=== PATIENT | male | born 1970 | race Caucasian/White ===

== ENCOUNTER 2023-10-01 21:32 | Emergency (ER) | payer BC, SELFPAY ==
[2023-10-01] VITALS (8 sets, daily range): BP systolic 95–116; BP diastolic 61–73; PULSE 63–81; BMI 35.1
[2023-10-01 21:41] LABS: Glucose - Point of Care 127 mg/dl (70-99)
[2023-10-01 22:31] LABS: % Basophils 0.9 % (0-2); % Eosinophils 3.1 % (0-6); % Immature Granulocytes 0.5 % (0-0.5); % Monocytes 7.5 % (1.7-9.3); Absolute Basophils 0.1 10^3/uL (0-0.2); Absolute Eosinophils 0.2 10^3/uL (0-0.7); Absolute Lymphocytes 1.1 10^3/uL (1.2-3.4); Absolute Monocytes 0.4 10^3/uL (0.1-0.6); Hematocrit 38.1 % (39.0-52.0); Hemoglobin 13.5 g/dL (13.0-18.0); Mean Corp Hgb Conc. 35.4 g/dL (33.0-37.0); Mean Corpuscular Hgb 30.1 pg (27.0-31.0); Mean Corpuscular Volume 84.9 fL (80.0-94.0); Mean Platelet Volume 9.8 fL (7.4-10.4); Nucleated Red Blood Cells % 0 % (-); Platelet Count 252 10^3/uL (130-400); Red Blood Cell Count 4.49 10^6/uL (4.70-6.10); Red Cell Dist. Width 12.9 % (11.5-14.5); White Blood Cell Count 5.9 10^3/uL (4.8-10.8)
[2023-10-01 22:54] LABS: ALT (SGPT) 26 U/L (0-50); AST (SGOT) 26 U/L (17-59); Albumin 3.9 g/dl (3.5-5.0); Alkaline Phosphatase 52 U/L (38-126); Blood Urea Nitrogen 15 mg/dl (9-20); Carbon Dioxide 19 mmol/L (22-30); Chloride 107 mmol/L (98-107); Estimated Creatinine Clearance 100 ml/min; Glucose 120 mg/dl (70-99); Potassium 3.7 mmol/L (3.5-5.1); Sodium 135 mmol/L (135-145); Total Bilirubin 0.8 mg/dl (0.2-1.3); Total Protein 6.1 g/dl (6.3-8.2); eGFR > 60.00
[2023-10-01 22:55] LABS: Troponin I < 0.012 ng/ml
--- NOTE | 2023-10-01 22:55 | ED.GENMED ---
History of Present Illness
General
Chief Complaint: Fainting Sensation
Source: patient and spouse
Exam Limitations: none
Time Seen by Provider: 10/01/23 22:54
Travel History
Have you had any contact with someone who has COVID-19?: No
Do you have any symptoms of coronavirus? Fever > 100 degrees, chills, cough, shortness of breath, sore throat, loss of taste or smell, muscle aches, or headache?: No
History of Present Illness
History of Present Illness:
Healthy 53-year-old male became lightheaded cold sweat blurry vision bilateral ear ringing while at dinner. No syncopal episode. No palpitations chest pain shortness of breath. No unusual headache. No neurologic symptoms. Feels better now just
slightly weak. Did get blood earlier today. Had a few drinks at dinner and 1 prior to dinner.
Past History
Past History
ED Past Medical History: None
ED Past Surgical History: Negative Cardiac
Social History
Tobacco: Non-smoker
Alcohol: Occasional
Drug: None
Personal:
Living: with family
Employment: Employed
Family History
Family History: Negative Early CAD, CAD or Sudden
Review of Systems
Review of Systems
All Other Systems: Not applicable
Respiratory: Denies trouble breathing
Cardiac: Denies chest pain or palpitations
Phy Exam
Physical Exam
Physical Exam:
GENERAL: Alert and oriented in no apparent distress
EYE: Orbits normal.
NECK: Supple, no carotid bruit
ENT: Pharynx without erythema
CARDIAC: Regular rate and rhythm without any obvious murmurs.
LUNGS: Clear breath sounds,normal
ABDOMEN: Soft, without focal tenderness or distention
NEUROLOGICAL: Alert and oriented , grossly non-focal
SKIN: Warm and dry, no rash or lesion, no discoloration, skin intact.
MUSCULOSKELETAL: No edema,no deformity.Good color
PSYCH: Normal and appropriate interaction.
Course
Orders/Labs/Results
Orders:
Orders
10/01/23 21:36
EKG [Electrocardiogram (*1)] Urgent
Reason for Study: Vertigo / Dizzy
EKG- Treatment ONCE
10/01/23 22:24
D-Dimer Urgent
10/01/23 22:26
Complete Blood Count/With Diff Urgent
Comprehensive Metabolic Panel Urgent
Troponin I Urgent
10/01/23 23:08
0.9% Sodium Chloride 1000 ml [Nss] 1,000 ml IV BOLUS
10/02/23 00:11
Electrocardiogram (*1) Urgent
Reason for Study: Vertigo / Dizzy
10/02/23 00:12
EKG- Treatment ONCE
10/02/23 00:14
Troponin I Urgent
Abnormal Lab Results
10/01/23 10/01/23
21:39 22:26
RBC 4.49 L 10^6/uL
(4.70-6.10)
Hct 38.1 L %
(39.0-52.0)
Absolute Lymphs (auto) 1.1 L 10^3/uL
(1.2-3.4)
Lymphocytes % 19.0 L %
(20.5-51.1)
Carbon Dioxide 19 L mmol/L
(22-30)
Glucose 120 H mg/dl
(70-99)
Total Protein 6.1 L g/dl
(6.3-8.2)
POC Glucose 127 H mg/dl
(70-99)
10/01/23 22:26
10/01/23 22:26
Vital Signs
Initial and Last Documented VS:
Initial Vital Signs
Temp Pulse Resp BP Pulse Ox
98.0 F 62 18 107/69 100
10/01/23 21:35 10/01/23 21:35 10/01/23 21:35 10/01/23 21:35 10/01/23 21:35
Last Documented Vital Signs
Temp Pulse Resp BP Pulse Ox
98.0 F 67 16 114/67 96
10/01/23 21:35 10/02/23 00:45 10/02/23 00:45 10/02/23 00:00 10/02/23 00:45
MDM/Problems Addressed
Differential Diagnosis Includes:
Patient with a near syncopal episode. Prodromal symptoms. No drop attacks syncope. No chest pain shortness of breath or other complaints. Did give blood earlier today. Workup in progress.
*Pulse Oximetry
Patient hypoxic: no
*EKG
Interpreted by ED Provider?: Yes
Interpretation: abnormal
Comparison EKG: changes noted
Heart Rate: 53
Rate: bradycardiac
Rhythm: sinus
[place]: normal axis
Interval: normal interval
QRS Pattern: normal QRS
Ischemia: no ischemia
*Critical Care Note
Total Time (30-74mins, 75-104mins- exclusive of procedures): Not Applicable
Update Note
Update Note:
EKG normal sinus rhythm at 61. PACs. No acute changes. Repeat troponin negative. D-dimer negative. No drop attacks syncope. Patient did give blood earlier in the day which may have been a secondary component to this. Stable for discharge to
follow-up
ED Attending Note
-
Portions of this chart may have been created with voice recognition software.� Occasional wrong word or��sound alike� substitutions may have occurred due to the inherent limitations of voice recognition software.
Discharge Plan
Departure
Patient Disposition: Home (Routine Discharge)
Date of Disposition: 10/02/23
Time of Disposition: 01:11
Patient with high blood pressure during this ER visit?: No
Discharge Problem:
Near syncope
Instructions: Near Fainting (DC)
Prescriptions:
No Action
calcium carbonate [Antacid (calcium carbonate)] 1 TABLET tablet,chewable
500 mg PO Q4HPRN PRN (Reason: indigestion)
omeprazole magnesium [Prilosec OTC] 20 MG tablet,delayed release (DR/EC)
20 mg PO DAILY Qty: 20 0RF
Referrals:
Beau Finn, DO [Family Provider] - Follow up in 2-3 days
Interventions
Interventions:
*General Assessment Last Done: 10/01/23 22:29
*Neglect/Abuse Screening Last Done: 10/01/23 22:29
ED- Cardiac Assessment Last Done: 10/01/23 22:30
ED- Neurological Assessment Last Done: 10/01/23 22:30
[2023-10-01] MEDS: NSS 1000 IV (23:18)
[2023-10-01 23:49] LABS: D-Dimer 0.37 ug/mlFEU (0.00-0.50)
[2023-10-02] VITALS: BP 114/67
[2023-10-02 00:47] LABS: Troponin I < 0.012 ng/ml
[2023-10-02 01:00] VITALS: BP 109/67
== END 2023-10-02 01:24 | disposition home or self-care (01) ==
LOC: EMR 21:32
PROVIDERS: Emergency Medicine; EMERGENCY PHYSICIAN Emergency Medicine; FAMILY PHYSICIAN Family Medicine
DX: R55 Syncope and collapse (principal); R53.1 Weakness; R42 Dizziness and giddiness; H93.13 Tinnitus, bilateral; H53.8 Other visual disturbances
CPT/HCPCS: 99284; 96360; 80053; 82962; 84484; 85025; 85379; 93005

== ENCOUNTER → 2024-07-27 06:23 | Day surgery (SDC) | payer BC, SELFPAY | LOC: GI 06:23 | PROVIDERS: ATTENDING PHYSICIAN Internal Medicine; FAMILY PHYSICIAN Family Medicine | DX: Z12.11 Encounter for screening for malignant neoplasm of colon (principal); D12.3 Benign neoplasm of transverse colon; D12.4 Benign neoplasm of descending colon; K63.5 Polyp of colon; D12.8 Benign neoplasm of rectum; Z86.0100 Personal history of colon polyps, unspecified | CPT/HCPCS: 45385; 45380; 88305 ==

== ENCOUNTER → 2024-08-29 15:05 | Outpatient (REF) | payer BC, SELFPAY | LOC: MRI 3T 15:05 | PROVIDERS: ATTENDING PHYSICIAN Specialist; FAMILY PHYSICIAN Family Medicine | DX: R97.20 Elevated prostate specific antigen [PSA] (principal) | CPT/HCPCS: 72197; A9575 ==

== ENCOUNTER → 2025-02-22 13:40 | Outpatient (REF) | payer BC, SELFPAY | LOC: RAD 13:40 | PROVIDERS: ATTENDING PHYSICIAN Family Medicine | DX: R10.32 Left lower quadrant pain (principal); N50.812 Left testicular pain | CPT/HCPCS: 76870; 76882; 93976 ==

== ENCOUNTER 2025-04-05 09:44 | Emergency (ER) | payer BC, SELFPAY ==
[2025-04-05 09:48] VITALS: BP 156/92
[2025-04-05 10:10] LABS: Hematocrit 46.3 % (39.0-52.0); Hemoglobin 15.7 g/dL (13.0-18.0); Mean Corp Hgb Conc. 33.9 g/dL (33.0-37.0); Mean Corpuscular Volume 86.4 fL (80.0-94.0); Nucleated Red Blood Cells % 0 % (-); Platelet Count 220 10^3/uL (130-400); Red Cell Dist. Width 13.9 % (11.5-14.5)
[2025-04-05 10:29] LABS: ALT (SGPT) 21 U/L (0-50); AST (SGOT) 22 U/L (17-59); Albumin 4.6 g/dl (3.5-5.0); Alkaline Phosphatase 49 U/L (38-126); Blood Urea Nitrogen 12 mg/dl (9-20); Calcium 8.9 mg/dl (8.4-10.2); Carbon Dioxide 25 mmol/L (22-30); Chloride 105 mmol/L (98-107); Glucose 111 mg/dl (70-99); Lipase 39 U/L (23-300); Potassium 4.5 mmol/L (3.5-5.1); Sodium 137 mmol/L (135-145); Total Protein 7.2 g/dl (6.3-8.2); eGFR > 60.00
--- NOTE | 2025-04-05 11:10 | ED.GENMED ---
History of Present Illness
General
Chief Complaint: Abdominal Symptoms
Source: patient
Exam Limitations: none
Time Seen by Provider: 04/05/25 10:45
History of Present Illness
History of Present Illness:
54yoM with no significant past medical history presenting for evaluation of constipation. His last normal BM was 3 days ago. He typically has a bowel movement daily. He was able to pass small pellet-like stools since last night. He also reports
generalized abdominal discomfort, uneasiness, and bloating. He vomited this morning after drinking coffee. He took a laxative earlier today which has not took effect yet. He denies any fevers or urinary symptoms. He had a colonoscopy in July
2023 which showed a few polyps. No previous abdominal surgeries.
Past History
Past History
ED Past Medical History: None
ED Past Surgical History: Negative Cardiac
Social History
Tobacco: Non-smoker
Alcohol: Occasional
Drug: None
Personal:
Living: with family
Employment: Employed
Family History
Family History: Negative Early CAD, CAD or Sudden
Phy Exam
General Physical Exam
General Presentation: well appearing and no apparent distress
General Skin: warm and dry
General Habitus: normal
General Mental: alert
ENT Exam
ENT Exam: normocephalic
Pulmonary Exam
Pulmonary Exam: no respiratory distress
Gastrointestinal Exam
Gastrointestinal Exam: soft, non distended and other (+Mild generalized abdominal tenderness. No rebound or guarding.)
Neurological Exam
Neurological Exam: alert
[place] Coma Scale
Eye Opening: Spontaneous
Verbal Response: Oriented
Motor Response: Obeys Commands
GCS Total Score: 15
Skin Exam
Skin Exam: normal color and warm/dry
Psychiatric Exam
Psychiatric Exam: normal mood/affect
Course
Orders/Labs/Results
Orders:
Orders
04/05/25 10:04
Complete Blood Count/With Diff Urgent
Comprehensive Metabolic Panel Urgent
Lipase Urgent
04/05/25 11:09
CT Abd/pelvis W Iv Cont Urgent
Comment:
Reason For Exam: generalized abd pain, constipation
04/05/25 11:31
Ondansetron Injectable [Zofran] 4 mg IV NOW STA
Abnormal Lab Results
04/05/25
10:04
Absolute Lymphs (auto) 0.4 L 10^3/uL
(1.2-3.4)
Neutrophils % 82.8 H %
(42.2-75.2)
Lymphocytes % 7.3 L %
(20.5-51.1)
Glucose 111 H mg/dl
(70-99)
Total Bilirubin 1.4 H mg/dl
(0.2-1.3)
04/05/25 10:04
04/05/25 10:04
Vital Signs
Initial and Last Documented VS:
Initial Vital Signs
Temp Pulse Resp BP Pulse Ox
98 F 64 18 156/92 99
04/05/25 09:48 04/05/25 09:48 04/05/25 09:48 04/05/25 09:48 04/05/25 09:48
Last Documented Vital Signs
Temp Pulse Resp BP Pulse Ox
98 F 61 16 150/80 98
04/05/25 09:48 04/05/25 13:32 04/05/25 13:32 04/05/25 13:32 04/05/25 13:32
MDM/Problems Addressed
Differential Diagnosis Includes:
54yoM presenting with abd bloating/uneasiness and constipation x 4 days. Had an episode of vomiting this morning. He is mildly hypertensive with otherwise stable vitals. He is well appearing in no distress. No signs of peritonitis on abdominal exam.
Differential diagnosis includes but is not limited to: constipation, diverticulitis, SBO, colitis
Initial ED plan: Labs obtained in triage which are unremarkable. Will proceed with CT abdomen. IV Zofran and fluid bolus for symptoms.
*Pulse Oximetry
SaO2: 99
Oxygen Mode of Delivery: Room air
Patient hypoxic: no (99%)
*Critical Care Note
Total Time (30-74mins, 75-104mins- exclusive of procedures): Not Applicable
Update Note
Update Note:
CT shows fluid-filled small bowel loops and colon suggesting gastroenteritis. No evidence of obstruction. Low-attenuation masses in the liver noted suggesting hemangiomas and simple cysts which patient was previously aware of. There is also a 5
mm low-attenuation lesion mass in the left kidney for which ultrasound is recommended. Patient informed of imaging results and was provided with a copy of the radiology report. No indication for hospitalization. Prescriptions provided for Zofran
and Bentyl and supportive care discussed. Advised follow-up with PCP and ED return precautions reviewed. Patient discharged stable condition.
ED Attending Note
-
Portions of this chart may have been created with voice recognition software.� Occasional wrong word or��sound alike� substitutions may have occurred due to the inherent limitations of voice recognition software.
Discharge Plan
Departure
Patient Disposition: Home (Routine Discharge)
Date of Disposition: 04/05/25
Time of Disposition: 13:41
Patient with high blood pressure during this ER visit?: Yes
Discharge Problem:
Nonspecific abdominal pain, Nausea and vomiting, Lesion of left [place] kidney, Lesion of liver
Instructions: Abdominal Pain
Prescriptions:
New
ondansetron 4 mg tablet,disintegrating
4 mg PO Q6H PRN (Reason: nausea and vomiting) Qty: 20 0RF
dicyclomine 20 mg tablet
20 mg PO QID PRN (Reason: abdominal cramping) Qty: 20 0RF
No Action
calcium carbonate [Antacid (calcium carbonate)] 1 TABLET tablet,chewable
500 mg PO Q4HPRN PRN (Reason: indigestion)
omeprazole magnesium [Prilosec OTC] 20 MG tablet,delayed release (DR/EC)
20 mg PO DAILY Qty: 20 0RF
Referrals:
Beau Finn DO [Family Provider, Family Practice]
Activity Restrictions/Additional Instructions:
Take Zofran as needed for nausea. Take Bentyl as needed for abdominal cramping. Eat a bland diet until symptoms improve.
Please follow-up with your family doctor in 4-5 days. Return to the ER with any worsening symptoms including fevers or severe pain.
Interventions
Interventions:
*Risk Screen - Suicide Last Done: 04/05/25 09:52
*General Assessment Last Done: 04/05/25 09:52
*Neglect/Abuse Screening Last Done: 04/05/25 09:52
*ED- Fall Risk Assessment Last Done: 04/05/25 13:56
*ED COVID-19 Vaccine History Last Done: 04/05/25 09:52
*Nursing Disposition Last Done: 04/05/25 13:56
TN-Uswgtn-Srqxvzmelz Assessment Last Done: 04/05/25 12:01
Discharge Date and Time
Discharge Date/Time: 04/05/25 13:56
Print Language: ARGENTINE
[2025-04-05 11:42] VITALS: BMI 32.3
[2025-04-05] MEDS: ZOFRAN 4 MG IV (11:42)
[2025-04-05 13:32] VITALS: BP 150/80
== END 2025-04-05 13:56 | disposition home or self-care (01) ==
LOC: EMR 09:44
PROVIDERS: EMERGENCY PHYSICIAN Emergency Medicine; FAMILY PHYSICIAN Family Medicine
DX: R10.84 Generalized abdominal pain (principal); R11.2 Nausea with vomiting, unspecified; N28.9 Disorder of kidney and ureter, unspecified; K76.9 Liver disease, unspecified
CPT/HCPCS: 96374; 99284; 74177; 80053; 83690; 85025; Q9967